=== PATIENT | female | born 1955 | race Caucasian/White ===

== ENCOUNTER → 2020-04-10 15:54 | Outpatient (CLI) | payer MEDICARE, OTHER, SELFPAY ==
--- NOTE | 2020-04-10 15:58 | DI.RAD.S_ITS ---
PROCEDURE: XR HAND RT MIN 3V INDICATIONS: persisting swelling TECHNIQUE: 3 views of the hand(s) acquired. COMPARISON: None. FINDINGS: Bones: No fractures or dislocations. Carpal bones are normally aligned. No suspicious bony lesions. Mild diffuse joint narrowing with periarticular osteophyte formation. No erosive changes. Soft tissues: No suspicious soft tissue calcifications. IMPRESSION: Mild diffuse osteoarthritis. Dictated by: Mir Lewis [facility] Interpreted: Sheri Escalera MD on 04/10/2020 at 17:03 Approved by: Sheri Escalera M.D. on 04/10/2020 at 17:12
== END ==
PROVIDERS: PCP Nurse Practitioner Family; Referring Provider Nurse Practitioner Family; Visit Provider Nurse Practitioner Family
DX: M79.89 Other specified soft tissue disorders (principal); M19.041 Primary osteoarthritis, right hand
CPT/HCPCS: 73130

== ENCOUNTER → 2020-05-01 09:00 | Outpatient (CLI) | payer MEDICARE, OTHER, SELFPAY ==
[2020-05-01 10:05] LABS: Hemoglobin 13.6 g/dL (12.0-16.0); Mean Corpuscular HGB Conc 33.2 % (30-36); Mean Corpuscular Hemoglobin 34.1 PG (26-34); Mean Corpuscular Volume 102.8 fL (80-100); Platelet Count 298 X10^3/uL (150-400); Red Blood Cell Count 3.99 X10^6/uL (4.0-5.2); Red Cell Distribution Width 12.5 % (11.6-14.8); White Blood Cell Count 6.3 X10^3/uL (4.5-11.0)
[2020-05-01 10:20] LABS: Alanine Aminotransferase 19 IU/L (<35); Albumin 4.1 g/dL (3.5-5.0); Albumin Globulin Ratio 1.2 (1.0-2.8); Alkaline Phosphatase 54 U/L (38-126); Aspartate Aminotransferase 33 IU/L (14-36); BUN Creatinine Ratio 27.2 (6-22); Bilirubin Total 0.5 mg/dL (0.2-1.3); Blood Urea Nitrogen 22 mg/dL (7-17); Calcium 9.4 mg/dL (8.4-10.2); Carbon Dioxide 31 mmol/L (22-32); Chloride 104 mmol/L (98-107); Cholesterol 233 mg/dL (140-199); Estimated Glomerular Filt Rate > 60.0 mL/min (>60); Globulin 3.3 g/dL (1.7-4.1); Glucose 96 mg/dL (80-110); HDL Cholesterol 76 mg/dL (40-60); HEMOLYSIS < 15 (0-50); LDL Cholesterol Calculated 139 mg/dL (<100); Potassium 4.6 mmol/L (3.4-5.1); Sodium 138 mmol/L (137-145); Total Protein 7.4 g/dL (6.3-8.2); Triglycerides 90 mg/dL (35-150)
== END ==
PROVIDERS: PCP Nurse Practitioner Family; Referring Provider Nurse Practitioner Family; Visit Provider Nurse Practitioner Family
DX: Z00.00 Encounter for general adult medical examination without abnormal findings (principal); E78.2 Mixed hyperlipidemia
CPT/HCPCS: 36415; 80053; 80061; 85027

== ENCOUNTER → 2021-01-23 16:49 | Outpatient (CLI) | payer MEDICARE, OTHER, SELFPAY ==
--- NOTE | 2021-01-23 16:51 | DI.RAD.S_ITS ---
PROCEDURE: XR HAND RT 2V INDICATIONS: swelling right hand for two years TECHNIQUE: 2 views of the hand(s) acquired. COMPARISON: [facility], CR, XR HAND RT MIN 3V, 04/10/2020, 15:50. FINDINGS: Bones: No fractures or dislocations. Carpal bones are normally aligned. No suspicious bony lesions. Soft tissues: No suspicious soft tissue calcifications. IMPRESSION: No osseous trauma found, no sign of foreign body or osteomyelitis. Dictated by: Donato Ramos M.D. on 01/24/2021 at 9:41 Approved by: Donato Ramos M.D. on 01/24/2021 at 9:41
[2021-01-23 19:02] LABS: Hematocrit 39.6 % (36-46); Hemoglobin 13.1 g/dL (12.0-16.0); Mean Corpuscular Hemoglobin 33.2 PG (26-34); Mean Corpuscular Volume 100.4 fL (80-100); Platelet Count 287 X10^3/uL (150-400); Red Blood Cell Count 3.94 X10^6/uL (4.0-5.2); Red Cell Distribution Width 13.1 % (11.6-14.8); White Blood Cell Count 11.2 X10^3/uL (4.5-11.0)
[2021-01-23 19:03] LABS: Alanine Aminotransferase 35 IU/L (<35); Albumin Globulin Ratio 1.3 (1.0-2.8); Alkaline Phosphatase 65 U/L (38-126); Aspartate Aminotransferase 45 IU/L (14-36); BUN Creatinine Ratio 40.6 (6-22); Blood Urea Nitrogen 28 mg/dL (7-17); Calcium 9.7 mg/dL (8.4-10.2); Carbon Dioxide 27 mmol/L (22-32); Chloride 104 mmol/L (98-107); Estimated Glomerular Filt Rate > 60.0 mL/min (>60); Globulin 3.1 g/dL (1.7-4.1); Glucose 94 mg/dL (80-110); HEMOLYSIS < 15 (0-50); Potassium 4.6 mmol/L (3.4-5.1); Sodium 137 mmol/L (137-145); Total Protein 7.1 g/dL (6.3-8.2)
[2021-01-23 19:12] LABS: Bilirubin Total < 0.1 mg/dL (0.2-1.3)
== END ==
PROVIDERS: PCP Nurse Practitioner Family; Referring Provider Nurse Practitioner Family; Visit Provider Nurse Practitioner Family
DX: M79.89 Other specified soft tissue disorders (principal); Z86.16 Personal history of COVID-19; R06.00 Dyspnea, unspecified
CPT/HCPCS: 36415; 73120; 80053; 85027

== ENCOUNTER → 2021-03-03 10:55 | Outpatient (CLI) | payer MEDICARE, OTHER, SELFPAY ==
--- NOTE | 2021-03-03 10:58 | DI.MG.S_ITS ---
BILATERAL DIGITAL SCREENING MAMMOGRAM 3D/2D WITH CAD: 03/03/2021 CLINICAL: Routine screening. Breast cancer. Comparison is made to exams dated: 03/28/2019 mammogram - [facility], 06/27/2018 mammogram, and 10/22/2016 mammogram - [facility]. There are scattered fibroglandular elements in both breasts. Current study was also evaluated with a Computer Aided Detection (CAD) system. There are grouped fine calcifications in the right breast posterior depth superior region seen on the mediolateral oblique view only. No other significant masses, calcifications, or other findings are seen in either breast. IMPRESSION: INCOMPLETE: NEEDS ADDITIONAL IMAGING EVALUATION The grouped fine calcifications in the right breast are indeterminate. Mediolateral, spot magnification, and additional views are recommended. This exam was interpreted at Station ID: [id number]. NOTE: For mammograms, a report in lay terms will be sent to the patient. Approximately 15% of breast malignancies will not be visualized mammographically. In the management of a palpable breast mass, a negative mammogram must not discourage biopsy of a clinically suspicious lesion. Electronically Signed By: Gibson gutierres/robinson:03/03/2021 13:16:01 copy to: Suze Howell, [facility] letter sent: Additional Imaging Needed ACR BI-RADS Category 0: Incomplete [id number]
[2021-03-03 12:40] LABS: Alanine Aminotransferase 21 IU/L (<35); Albumin 4.2 g/dL (3.5-5.0); Albumin Globulin Ratio 1.3 (1.0-2.8); Alkaline Phosphatase 65 U/L (38-126); Aspartate Aminotransferase 34 IU/L (14-36); Bilirubin Total 0.3 mg/dL (0.2-1.3); Bilirubin Unconjugated 0.2 mg/dL (0.0-1.1); Globulin 3.3 g/dL (1.7-4.1); HEMOLYSIS < 15 (0-50); Total Protein 7.5 g/dL (6.3-8.2)
== END ==
PROVIDERS: PCP Nurse Practitioner Family; Referring Provider Nurse Practitioner Family; Visit Provider Nurse Practitioner Family
DX: Z12.31 Encounter for screening mammogram for malignant neoplasm of breast (principal); Z85.3 Personal history of malignant neoplasm of breast; R74.8 Abnormal levels of other serum enzymes; Z86.16 Personal history of COVID-19
CPT/HCPCS: 36415; 77063; 77067; 80076

== ENCOUNTER → 2021-03-20 09:18 | Outpatient (CLI) | payer MEDICARE, OTHER, SELFPAY ==
--- NOTE | 2021-03-20 | DI.MG.S_ITS ---
UNILATERAL RIGHT DIGITAL DIAGNOSTIC MAMMOGRAM 3D/2D WITH ADDITIONAL VIEWS: 03/20/2021 CLINICAL: Additional evaluation requested from prior study. Comparison is made to exams dated: 03/03/2021 mammogram - [facility], 03/28/2019 mammogram - [facility], and 06/27/2018 mammogram - [facility]. There are scattered fibroglandular elements in right breast. There are grouped possibly vascular calcifications in the right breast posterior depth superior region seen on the mediolateral oblique view only. No other significant masses or calcifications are seen in the breast. IMPRESSION: PROBABLY BENIGN The grouped vascular calcifications in the right breast are probably benign. A follow-up mammogram in 6 months is recommended to demonstrate stability. The calcifications on magnification views are likely vascular calcifications and appear similar to surrounding vascular calcifications. However given patient history of breast cancer in this region, close follow-up with a six-month mammogram is recommended. This exam was interpreted at Station ID: [id number]. NOTE: For mammograms, a report in lay terms will be sent to the patient. Approximately 15% of breast malignancies will not be visualized mammographically. In the management of a palpable breast mass, a negative mammogram must not discourage biopsy of a clinically suspicious lesion. Electronically Signed By: Vargas Santillan acr/:03/20/2021 10:02:31 copy to: Suze Howell, [facility] letter sent: Followup Recommended ACR BI-RADS Category 3: Probably benign [id number]
== END ==
PROVIDERS: PCP Nurse Practitioner Family; Referring Provider Nurse Practitioner Family; Visit Provider Nurse Practitioner Family
DX: R92.8 Other abnormal and inconclusive findings on diagnostic imaging of breast (principal); R92.1 Mammographic calcification found on diagnostic imaging of breast; Z85.3 Personal history of malignant neoplasm of breast
CPT/HCPCS: 77065; G0279

== ENCOUNTER → 2021-04-22 09:06 | Outpatient (CLI) | payer MEDICARE, OTHER, SELFPAY ==
[2021-04-22 10:14] LABS: COVID19 -Nasal RAPID Negative (Negative)
== END ==
PROVIDERS: PCP Nurse Practitioner Family; Referring Provider Nurse Practitioner Family; Visit Provider Nurse Practitioner Family
DX: Z20.822 Contact with and (suspected) exposure to COVID-19 (principal)
CPT/HCPCS: 87635; C9803

== ENCOUNTER → 2021-04-22 09:08 | Outpatient (CLI) | payer MEDICARE, OTHER, SELFPAY ==
--- NOTE | 2021-04-30 11:01 | PM.PFT.1 ---
Pulmonary Function Test Referral & Results Date Patient Seen: 04/22/21 Requesting provider: Ofelia Shafer Results: The spirometry demonstrates an FVC of 2.09 L which is 71% of predicted. The FEV1 was measured at 1.82 L which is 81% of predicted. The FEV1/FVC ratio was 87 which is 114% of predicted. Following the administration of bronchodilator there was a 27% improvement in FEF 25-75%. Lung volumes show an SVC of 2.59 L which is 92% of predicted. The diffusing capacity was measured at 14.39 which is 62% of predicted. No hemoglobin value was provided, so no correction for potential anemia could be made, if appropriate. The maximum voluntary ventilation was normal Interpretation: This study demonstrates probably normal spirometry. There is a minimal improvement in small airway flow post bronchodilator but there really is no evidence of obstructive lung disease based on flow volume loop and FEV1/FVC ratio etcetera There is a moderate reduction diffusing capacity suggesting some element of disease at the capillary alveolar level Clinical correlation suggested
== END ==
PROVIDERS: PCP Nurse Practitioner Family; Referring Provider Internal Medicine Cardiovascular Disease; Visit Provider Internal Medicine Cardiovascular Disease
DX: R06.00 Dyspnea, unspecified (principal); Z87.891 Personal history of nicotine dependence; J98.8 Other specified respiratory disorders; J98.4 Other disorders of lung; Z20.822 Contact with and (suspected) exposure to COVID-19
CPT/HCPCS: 87635; 94060; 94726; 94729; C9803

== ENCOUNTER → 2021-05-03 09:32 | Outpatient (CLI) | payer MEDICARE, OTHER, SELFPAY ==
[2021-05-03 10:42] LABS: COVID19 -Nasal RAPID Negative (Negative)
== END ==
PROVIDERS: PCP Nurse Practitioner Family; Referring Provider Physician Assistant; Visit Provider Physician Assistant
DX: Z20.822 Contact with and (suspected) exposure to COVID-19 (principal); Z01.812 Encounter for preprocedural laboratory examination
CPT/HCPCS: 87635; C9803

== ENCOUNTER → 2021-05-05 13:29 | Outpatient (CLI) | payer MEDICARE, OTHER, SELFPAY ==
--- OUTSIDE RECORDS SUMMARY | 2021-04-15 09:17 | XMS_ITS | Referral Summary ---
:1955 Author Organization [facility] Address [address] [place] [id number] Care Team Providers Name Role Phone JOSE L Shafer Primary Care Provider Reason for Referral Hospital - Outpatient (Routine) Status Reason Specialty Diagnoses / Procedures Referred By Meliton laureano Referred To Contact Closed Diagnoses STUART (dyspnea on exertion) Former smoker, stopped smoking in distant past Other disorders of lung [facility] Complete PFT with DLCO [address] [place] [address] [address] [id number] [place], [place] Phone: [phone] Phone: Electronically signed by Debbie Abrams MD atDiagnostic Imaging (Routine) Status Reason Specialty Diagnoses / Procedures Referred By Meliton laureano Referred To Contact Closed Diagnoses STUART (dyspnea on exertion) [facility] CVL NON NUCLEAR STRESS TEST TREADMILL [address] [place] [address] [phone] [place], [place] Phone: [phone] Phone: Electronically signed by Debbie Abrams MD atDiagnostic Imaging (Routine) Status Reason Specialty Diagnoses / Procedures Referred By Meliton laureano Referred To Contact Closed Diagnoses STUART (dyspnea on exertion) History of breast cancer [facility] ECHOCARDIOGRAM COMPLETE [address] [place] [address] [phone] [place], [place] Phone: [phone] Phone: Electronically signed by Debbie Abrams MD at Reason for Visit Reason Comments Consult Dyspnea, unspecified Evaluate and Treat (Routine) Status Reason Specialty Diagnoses / Procedures Referred By Meliton laureano Referred To Contact Closed Diagnoses Dyspnea, unspecified Aimee Shafer NP [facility] Procedures HI OFFICE OUTPATIENT VISIT [address] [place] [address] [address] [place], [place] [address] [place], [place] Phone: [phone] Phone: [phone] Fax: Encounter Details Date Type Department Care Team Description 04/07/2021 Office Visit Debbie Laughlin (dyspn ea on exertion) (Primary Dx); Clinics Cardiology MD [place] [facility]; [address] History of breast cancer; [facility], [address] Former smoker, stopped smoking in distan t past; D [place], [place] Other disorders of lung ; [place] [address] Lung disease [id number] Allergies No Known Active Allergiesdocumented as of this encounter (statuses as of 04/14/2021) Medications Medication Sig Dispensed Refills Start Date End Date Status tamoxifen Take 20 mg by mouth daily 0 Active (NOLVADEX) 20 mg Swallow whole; do not spli t, chew, or crush. Take with water or any other nonalcoholic drink with or without food at around the same time(s) every day. chemo tablet citalopram (CeleXA) Take 40 mg by mouth 0 Active 40 mg tablet daily aspirin 81 mg Take 81 mg by mouth 0 Active chewable tablet daily calcium carbonate Take by mouth 0 Active (CALCIUM 600 ORAL) vit Take 2 tablets by 0 Ac tive C/E/Zn/coppr/lutein mouth daily /zeaxan (PRESERVISION AREDS-2 ORAL) cholecalciferol, Take 2,000 Units by 0 Active vitamin D3, 50 mcg mouth daily (2,000 unit) capsule TURMERIC ORAL Take 400 mg by mouth 0 Active daily zinc 50 mg tablet Take 50 mg by mouth 0 Active daily documented as of this encounter (statuses as of 04/14/2021) Active Problems Problem Noted Date Osteopenia 04/05/2019 Lymphedema of right arm 04/05/2019 Malignant neoplasm of overlapping sites of right breas t in female, 04/04/2019 estrogen receptor positive documented as of this encounter (statuses as of 04/14/2021) Immunizations Name Administration Dates Next Due FLU High Dose 65+ (Fluzone) 05/20/2018 FLU PF 6+Mos Quad (Fluzone, FluLaval, Fluarix) 05/26/2017 Influenza, Quadrivalent 06/15/2015 Tdap (Boostrix,Adacel) 04/28/2019 documented as of this encounter Social History Tobacco Use Types Packs/Day Years Used Date Former Smoker 0.5 10 Quit: 1983 Smokeless Tobacco: Never Used Alcohol Use Standard Drinks/Week Comments Yes 1 (1 standard drink = 0.6 oz pure alcoho l) Sex Assigned at Date Recorded Not on file Job Start Date Occupation Industry Not on file Not on file Not on file documented as of this encounter Last Filed Vital Signs Vital Sign [place] Time Taken Comments Blood Pressure 130/72 04/07/2021 9:14 AM PDT Pulse 80 04/07/2021 9:14 AM PDT Temperature - - Respiratory Rate - - Oxygen Saturation - - Inhaled Oxygen Concentration - - Weight 77.8 kg (171 lb 9.6 oz) 04/07/2021 9:14 AM PDT Height - - Body Mass Index 29.92 04/05/2019 8:32 AM PDT documented in this encounter Progress Notes Debbie Abrams MD - 04/07/2021 9:00 AM PDT Subjective Patient ID: Khushi Rangel is a 65 y.o. female that presents today for had concerns including Consult ( Dyspnea, unspecified). HPI: Khushi is a pleasant 65 year old female, here alone today. She has a history of Covid ( September2020), Former Smoker 1/2 ppd X 10 years (quit 1983), hx of breast Cancer (2013) was radiated for 6 weeks and now on tamoxifen for the last two years. She is here today with STURAT that is slightly improving, her heart rate elevates to up to 130's, resting improves it. She had a asset protection specialist in [place], [place]. She has an inhaler that she has never used, it cost $ 400.00 and she does not want to use it and get used to it because of the cost. She was seeing a Shipwright Apprentice In [place], [place] and hopes to see him again in June for further studies in person. She used to g[place] walk up to 1 mile, along with other gym exercises but has limited her exercise due to her dyspnea. She states she can walk up to 2 flights of stairs without getting too winded. She denies orthopnea, PND, palpitations/heart racing, peripheral edema, lightheadedness syncope. PROBLEM LIST: # Breast cancer in 2013 # HLD # Former Smoker (.5 ppd X 10 years, quit 1983). Past Medical History: Diagnosis Date ??? [facility]) Past Surgical History: Procedure Laterality Date ??? BREAST LUMPECTOMY Right 2013 Stage 1 ??? CERVICAL FUSION 2006 ??? ECTOPIC SURGERY 1979 ??? OTHER SURGICAL HISTORY 2004 Breast reduction Family History Problem Relation Age of Onset ??? Congenital heart disease Mother foramen ovale ??? Transient ischemic attack Mother multiple ??? COPD Father Social History Socioeconomic History ??? Marital status: Spouse name: Not on file ??? Number of children: Not on file ??? Years of education: Not on file ??? Highest education level: Not on file Tobacco Use ??? Smoking status: Former Smoker Packs/day: 0.50 Years: 10.00 Pack years: 5.00 Quit date: 1983 Years since quittin.5 ??? Smokeless tobacco: Never Used Substance and Sexual Activity ??? Alcohol use: Yes Alcohol/week: 1.0 standard drinks Types: 1 Glasses of wine per week ??? Drug use: Never No Known Allergies Current Medication List Sig aspirin 81 mg chewable tablet Take 81 mg by mouth daily calcium carbonate (CALCIUM 600 ORAL) Take by mouth cholecalciferol, vitamin D3, 50 mcg (2,000 unit) capsule Take 2,000 Units by mouth daily citalopram (CeleXA) 40 mg tablet Take 40 mg by mouth daily tamoxifen (NOLVADEX) 20 mg chemo tablet Take 20 mg by mouth daily Swallow whole; do not split, chew, or crush. Take with water or any other nonalcoholic drink withor without food at around the same time(s) every day. TURMERIC ORAL Take 400 mg by mouth daily vit C/E/Zn/coppr/lutein/zeaxan (PRESERVISION AREDS-2 ORAL) Take 2 tablets by mouth daily zinc 50 mg tablet Take 50 mg by mouth daily Review of Systems Constitutional: Negative for fatigue and unexpected weight change. Eyes: Negative for visual disturbance. Respiratory: Negative for chest tightness and shortness of breath. Cardiovascular: Negative for chest pain, palpitations and leg swelling. Gastrointestinal: Negative for blood in stool. Endocrine: Negative for polydipsia. Genitourinary: Negative for hematuria. Skin: Negative for rash. Neurological: Negative for dizziness, weakness and light-headedness. Hematological: Does not bruise/bleed easily. Psychiatric/Behavioral: The patient is not nervous/anxious. All other systems reviewed and are negative. I have obtained and documented the patient's history and reviewed/discussed with Dr. Abrams. Lilia Ching [facility] Objective BP 130/72 (BP Location: Left arm, Patient Position: Sitting) Pulse 80 Wt 77.8 kg BMI 29.92 kg/m?? Physical Exam: General appearance: No apparent distress, well-nourished, pleasant, cooperative HEET: Normocephalic atraumatic, no scleral icterus, tongue midline, mucous membranes moist Neck: supple Cardiovascular: RRR, normal S1 and normal S2, no murmurs/ rubs/gallops, PMI nondisplaced, no JVD, noperipheral edema Respiratory: Good aeration, CTAB Abdomen: Soft, nontender, nondistended, + bowel sounds Neuro: Alert, no facial droop, tongue midline, no gross motor deficits Psych: appropriate affect Skin: no rashes on face, neck, and lower extremities Echo 10/22/2020 Normal LV size and function EF > 55%. Trace mitral valve regurgitation. There is mild to moderate tricuspid valve regurgitation. Severe elevated estimated right ventricular systolic pressure about 76mmHg. Trace of pulmonic valve regurgitation. Analysis of mitral valve inflow pulmonary vein Doppler and tissue Doppler suggests grade la diastolic dysfunction with elevated left atrial pressure. Assessment/Plan Comments: 1. STUART (dyspnea on exertion) ECG 12 Lead (Clinic - Future), ECG 12 Lead (Clinic - Future), ECHOCARDIOGRAM COMPLETE, CVL NON NUCLEAR STRESS TEST TREADMILL, Complete PFT with DLCO 2. Preventative health care ECG 12 Lead (Clinic - Future), ECG 12 Lead (Clinic - Future), Lipid panel 3. History of breast cancer ECHOCARDIOGRAM COMPLETE 4. Former smoker, stopped smoking in distant past Complete PFT with DLCO 5. Other disorders of lung Complete PFT with DLCO 6. Lung disease Complete PFT with DLCO # STUART, patient tested positive for Covid 09/12/2020 and was hospitalized for about 1.5 months. She is slowly improving. We suspect her dyspnea is more likely from post COVID pulmonary complications; however, it is reasonable to do further cardiac testing. Plan: - Stress Test to assess symptoms and do risk stratification - Echo to reassess pulmonary artery pressures given pulmonary HTN on Echo 10/2020 - PFT to monitor lung function - Deisa to obtain labs from PCP office # HX of breast Cancer (2016), right sided malignant neoplasm, radiation for 6 weeks now on Tamoxifen. Plan: - Defer to Oncologist F/U in 3 months with lipid, stress test, echo, and PFTs as VV. KAVITHA, Lilia Ching, was present during parts of the visit with the patient and myself, to obtainpreliminary history and to familiarize with the Plan of Care (POC) and Medical Decision Making (MDM)for any possible future visits and care. I performed a full history, physical exam, and MDM and then developed POC with the note as above along with my edits. Electronically signed by Debbie Abrams MD 04/07/2021 12:14 PM documented in this encounter Plan of Treatment Upcoming Encounters Date Type Specialty Care Team Description 07/02/2021 Telemedicine Cardiology Debbie Abrams MD [address] [place] [address] Scheduled Orders Name Type Priority Associated Diagnoses Order S chedule ECHOCARDIOGRAM COMPLETE Imaging Routine STUART (dyspnea on E xpected: 04/07/2021, exertion) Expires: 04/07/2023 History of breast cancer CVL NON NUCLEAR STRESS Imaging Routine STUART (dyspnea on 1 Occurrences TEST TREADMILL exertion) starting 03/14 until 3 Complete PFT with DLCO PFT Routine STUART (dyspnea on Ex pected: 04/07/2021, exertion) Expires: 04/07/2022 Former smoker, stopped smoking in distant past Other disorders of lung Lung disease Lipid panel Lab Routine Preventative health Expected : 07/08/2021, care Expires: 2022 documented as of this encounter Procedures Procedure Name Priority Date/Time Associated Diagnosis Comme nts ECG 12-LEAD Routine 04/07/2021 9:55 AM STUART (dyspnea on Resul ts for this PDT exertion) procedure are in the Preventative health results section. care documented in this encounter Results ECG 12 Lead (Clinic - Future) (04/07/2021 9:55 AM PDT) Narrative Performed At This result has an attachment that is no t available. Result approved by Debbie Abrams MD on 04/07/21 documented in this encounter Visit Diagnoses Diagnosis STUART (dyspnea on exertion) - Primary Other dyspnea and respiratory abnormalit y Preventative health care Routine general medical examination at a health care facility History of breast cancer Personal history of malignant neoplasm o f breast Former smoker, stopped smoking in distan t past Other disorders of lung Lung disease Other diseases of lung, not elsewhere cl assified documented in this encounter documented as of this encounter Advance Directives Documents on File Type Date Recorded Patient Fruit Farmer Explanati on Advance Directives and Living Will
--- NOTE | 2021-05-05 13:31 | DI.ECHO.S_ITS ---
[facility] +---------+ : : [address] : : : : [id number] : : : : Phone: [phone] Echocardiogram Report + + :Name: ONEL PELLETIER Study Date: 05/05/2021 Height: 63 in : [facility] [place] Weight: 170 lb : : Gender: Female BSA: 1.8 m2 : :: 1955 Age: 65 yrs BP: 143/93 mmHg: :Reason For Study: Dyspnea : :Ordering Physician: Asha : :Sina Abrams Performed By: Bradley Hannah : :Referring: ASHA ABRAMS : + + Interpretation Summary 1) Normal left ventricular thickness, size, wall motion, and systolic function (EF 55-60%). 2) Normal right ventricular size and function. 3) No significant valvular abnormalities. 4) There is a trace or physiologic amount of tricuspid regurgitation. 5) No prior Echo available for comparison. Procedure: A two-dimensional transthoracic echocardiogram with color flow and Doppler was performed. The study quality was technically adequate. There is no prior echocardiogram noted for this patient. Left Ventricle: The left ventricle is normal in size and wall thickness. Left ventricular systolic function is normal. The ejection fraction is estimated to be 55-60%. There are no focal wall motion abnormalities. Diastolic function could not be accurately assessed due to unobtainable data. Right Ventricle: The right ventricle is normal in size and function. Atria: Both atria are normal in size. There is no Doppler evidence for an interatrial shunt. Mitral Valve: The mitral valve is normal in structure and function. There is trace mitral regurgitation. Aortic Valve: The aortic valve is normal in structure and function. There is no aortic valve stenosis. No aortic regurgitation is present. Tricuspid Valve: The tricuspid valve is normal in structure and function. There is a trace or physiologic amount of tricuspid regurgitation. Pulmonary artery pressures cannot be estimated because of the lack of a measurable TR jet velocity but the IVC suggests a CVP of around 3 mmHg. Pulmonic Valve: The pulmonic valve is normal in structure and function. There is a trace or physiologic amount of pulmonic regurgitation. Great Vessels: The aortic root is normal size. The dimensions of the ascending aorta are normal. The IVC is of normal diameter and collapses greater than 50% with a sniff. This suggests a low right atrial pressure of 3 mm Hg. Pericardium/ Pleura There is no pericardial effusion. There is no pleural effusion. MMode/2D Measurements & Calculations LVIDd: 4.3 cm LVOT diam: 1.9 cm LVIDs: 3.0 cm Ao root diam: 2.9 cm FS: 30.2 % asc Aorta Diam: 3.3 cm IVSd: 0.90 cm LVPWd: 0.90 cm LV holguin. diameter/BSA (cm/m^2): 2.4 LV sys. diameter/BSA (cm/m^2): 1.7 LA dimension: 2.5 cm RA long axis: 4.3 cm LA A2 area: 14.6 cm2 LA A4 area: 13.5 cm2 LA length (vol): 4.6 cm LA vol: 36.4 ml LA vol index: 20.2 ml/m2 TAPSE_phl: 1.7 cm Doppler Measurements & Calculations Ao V2 max: 178.0 cm/sec LVOT Max Barrington: 114.0 cm/sec Ao V2 mean: 125.0 cm/sec LV V1 max P.2 mmHg Ao max P.0 mmHg LV V1 VTI: 21.8 cm Ao mean P.0 mmHg DIONISIO(I,D): 2.1 cm2 Ao V2 VTI: 29.6 cm DIONISIO(V,D): 1.8 cm2 sev ratio: 0.74 DIONISIO indexed to BSA (cm^2/m^2): 1.2 MV E max barrington: 84.4 cm/sec PA V2 max: 100.0 cm/sec MV A max barrington: 112.0 cm/sec PA V2 mean: 72.5 cm/sec MV E/A: 0.75 PA mean P.0 mmHg Med Peak E' Barrington: 4.6 cm/sec PA pr(Accel): 27.7 mmHg E/E' med: 18.2 Lat Peak E' Barrington: 10.5 cm/sec E/E' lat: 8.0 E/e' average: 13.1 MV dec time: 0.22 sec SV(LVOT): 61.8 ml AV VR_phl: 0.64 DIONISIO(VTI)/BSA_phl: 1.2 MV P1/2t-pr_phl: 65.0 msec [place] Physician:04:25 PM
--- NOTE | 2021-05-05 13:32 | DI.NM.S_ITS ---
PROCEDURE: NM EXERCISE TREADMILL NON NUC COMPARISON: None. INDICATIONS: Dyspnea, unspecified FINDINGS: The patient exercised for 6 minutes and 0 seconds, reaching 6.1 METS, LEENA 1%, and 110% of maximum predicted heart rate. No angina and no ischemic changes with stress. Appropriate BP response to exercise. IMPRESSION: Low risk, normal treadmill ECG only stress test. No angina. Average exercise capacity. Dictated by: Debbie Abrams MD on 05/06/2021 at 14:08 Approved by: Debbie Abrams MD on 05/06/2021 at 14:11
== END ==
PROVIDERS: PCP Nurse Practitioner Family; Referring Provider Internal Medicine Cardiovascular Disease; Visit Provider Internal Medicine Cardiovascular Disease
DX: R06.00 Dyspnea, unspecified (principal); Z85.3 Personal history of malignant neoplasm of breast
CPT/HCPCS: 93017; 93306

== ENCOUNTER → 2024-03-20 10:05 | Outpatient (CLI) | payer MEDICARE, OTHER, SELFPAY ==
--- NOTE | 2024-03-20 10:08 | DI.US.S_ITS ---
LIMITED ULTRASOUND OF RIGHT BREAST: 03/20/2024 CLINICAL: Focal right breast pain. Comparison is made to exams dated: 03/20/2024 mammogram, 03/20/2021 mammogram, 03/03/2021 mammogram - [facility], 03/28/2019 ultrasound, 03/28/2019 mammogram - [facility], and 06/27/2018 mammogram - [facility]. Color flow and real-time ultrasound of the right breast lower outer quadrant were performed. Ennis scale images of the real-time examination were reviewed. No significant abnormalities were seen sonographically in the right breast. Specifically, no finding to explain the patient's pain. Expected post surgical changes are seen in the area of lumpectomy scar just below the skin surface. IMPRESSION: NEGATIVE There is no sonographic correlate to the patient's pain and no evidence of malignancy. Return to annual mammogram screening schedule is recommended. Findings and recommendations were conveyed to the patient at time of exam. This exam was interpreted at Station ID: [id number]. Electronically Signed By: Sheri sharma/:03/20/2024 11:35:25 copy to: Suze Howell, [facility] letter sent: Normal Exam Ultrasound BI-RADS: 1 Negative
--- NOTE | 2024-03-20 10:08 | DI.MG.S_ITS ---
UNILATERAL RIGHT DIGITAL DIAGNOSTIC MAMMOGRAM 3D/2D: 03/20/2024 CLINICAL: Breast pain. History right breast cancer. Comparison is made to exams dated: 03/20/2021 mammogram, 03/03/2021 mammogram - [facility], 03/28/2019 mammogram - [facility], 06/27/2018 mammogram, and 10/22/2016 mammogram - [facility]. There are scattered areas of fibroglandular density in the right breast (category b / 25%-50% glandular tissue). There are stable surgical clips and scar marker in the right breast in the upper outer quadrant. No significant masses, calcifications, or other findings are seen in the breast. Specifically, no finding to explain the patient's pain. IMPRESSION: INCOMPLETE: NEEDS ADDITIONAL IMAGING EVALUATION There is no abnormality seen in the right breast to correspond with the pain. Surgical changes in the right breast are stable. Ultrasound is recommended for full evaluation of the painful area. This was performed immediately following this exam. This exam was interpreted at Station ID: [id number]. NOTE: For mammograms, a report in lay terms will be sent to the patient. Approximately 15% of breast malignancies will not be visualized mammographically. In the management of a palpable breast mass, a negative mammogram must not discourage biopsy of a clinically suspicious lesion. Electronically Signed By: Sheri sharma/:03/20/2024 11:12:57 copy to: Suze Howell, [facility] ACR BI-RADS Category 0: Incomplete [id number]
== END ==
LOC: MAMMO 10:07
PROVIDERS: Referring Provider Nurse Practitioner; Visit Provider Nurse Practitioner
DX: R92.2 Inconclusive mammogram (principal); R92.321 Mammographic fibroglandular density, right breast; N64.4 Mastodynia; Z85.3 Personal history of malignant neoplasm of breast
CPT/HCPCS: 76642; 77065; G0279

== ENCOUNTER → 2025-03-26 13:27 | Outpatient (CLI) | payer MEDICARE, OTHER, SELFPAY ==
--- NOTE | 2025-03-26 13:29 | DI.MG.S_ITS ---
MM screening mammo BI: 03/26/2025. BI-RADS: 2 CLINICAL: 69-year old female for bilateral screening mammogram. No Tyrer-Cuzick risk score calculation due to the patient's personal history of breast cancer. Patient reports a history of left breast carcinoma diagnosed at age 60. Status-post left lumpectomy with radiation therapy and hormonal therapy. PRIOR EXAMS 03/20/2024, 03/20/2021, 03/03/2021, 03/28/2019. MAMMOGRAPHY TECHNIQUE: 2D and 3D (tomosynthesis) digital mammographic views obtained, with additional images as needed for full coverage. Current study was also evaluated with a Computer Aided Detection (CAD) system. DENSITY B. There are scattered areas of fibroglandular density. MAMMOGRAPHY FINDINGS Right: Benign-appearing post-surgical changes noted on the right. There are no suspicious masses, calcifications, or other findings in the breast. No significant change from comparison. Left: No suspicious mass, asymmetry, microcalcification, or other abnormality seen. No significant change from comparison. IMPRESSION: Right * No evidence of malignancy with benign findings. Left * No evidence of malignancy. RECOMMENDATIONS Bilateral * Annual screening mammography. OVERALL ASSESSMENT CATEGORY BI-RADS-2: Benign. [employer] recommends annual screening mammography beginning at age 40 for women with average risk of breast cancer. ELECTRONICALLY SIGNED: Renetta Verma M.D. on 03/26/2025 at 04:04:40 PM PT Interpreting Station ID: [id number]
== END ==
PROVIDERS: Referring Provider Internal Medicine; Visit Provider Internal Medicine
DX: Z12.31 Encounter for screening mammogram for malignant neoplasm of breast (principal); Z85.3 Personal history of malignant neoplasm of breast
CPT/HCPCS: 77063; 77067